=== PATIENT | female | born 2005 | race Two or more races ===

== ENCOUNTER 2024-09-04 14:47 | Outpatient (CLI) | payer OTHER | END 2024-09-04 14:55 | disposition home or self-care (01) | LOC: MRI 14:47 | PROVIDERS: ATTEND Neuromusculoskeletal Medicine & OMM | DX: D35.2 Benign neoplasm of pituitary gland (principal); E23.7 Disorder of pituitary gland, unspecified | CPT/HCPCS: 70553 ==

== ENCOUNTER 2024-09-05 11:37 | Outpatient (CLI) | payer OTHER | END 2024-09-05 11:47 | disposition home or self-care (01) | LOC: TOM 11:37 | PROVIDERS: ATTEND Obstetrics & Gynecology Gynecology | DX: C74.00 Malignant neoplasm of cortex of unspecified adrenal gland (principal) ==